=== PATIENT | male | born 1995 | race Caucasian/White ===

== ENCOUNTER 2019-06-10 08:20 | Emergency (ER) | payer SELFPAY ==
--- NOTE | 2019-06-10 08:54 | ED ---
Headache - HPI Summary HPI Summary: This patient is a 24 year old male presenting to [facility] with a chief complaint of potential carbon monoxide poisoning 8 hours ago. 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 His work had a meter that read 800 PPM of Carbon Monoxide. 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 He states he was in the area for several minutes trying to determine what was going on before clearing out of the area. He states his symptoms have improved since onset. Pt denies any fever, chills, erythema of eyes, sore throat, CP, SOB, cough, abdominal pain, N/V, dysuria, hematuria, myalgia, edema, rash, or dizziness. - History Of Current Complaint Chief Complaint: EDChemNuclearExpose Stated Complaint: POSS CARBON MONOXIDE POISONING PER PT Time Seen by Provider: 06/10/19 08:43 Hx Obtained From: Patient Onset/Duration: Started hours ago - Allergies/Home Medications Allergies/Adverse Reactions: Allergies Allergy/AdvReac Type Severity Reaction Status Date / Time No Known Allergies Allergy Verified 06/10/19 08:26 Home Medications: Home Medications NK [No Home Medications Reported] 06/10/19 [History Confirmed 06/10/19] PMH/Surg Hx/FS Hx/Imm Hx Endocrine/Hematology History: Denies: Hx Diabetes Cardiovascular History: Denies: Hx Coronary Artery Disease - Immunization History Immunizations Up to Date: Yes Infectious Disease History: No Infectious Disease History: Denies: Traveled Outside the [place] in Last 30 Days - Family History Known Family History: Negative: Respiratory Disease - Social History Alcohol Use: Daily Alcohol Amount: a couple beers a day Substance Use Type: Reports: None Smoking Status (MU): Never Smoked Tobacco Review of Systems Positive: Fatigue. Negative: Fever, Chills Negative: Erythema Negative: Sore Throat Negative: Chest Pain Negative: Shortness Of Breath, Cough Negative: Abdominal Pain, Vomiting, Nausea Negative: dysuria, hematuria Negative: Myalgia, Edema Negative: Rash Neurological: Other - Headache, Disoriented, Confusion. Neg: Dizziness All Other Systems Reviewed And Are Negative: No Physical Exam - Summary Physical Exam Summary: Constitutional: Well-developed, Well-nourished, Alert. (-) Distressed Skin: Warm, Dry HENT: Normocephalic; Atraumatic Eyes: Conjunctiva normal Neck: Musculoskeletal ROM normal neck. (-) JVD, (-) Stridor, (-) Tracheal deviation Cardio: Rhythm regular, rate normal, Heart sounds normal; Intact distal pulses; The pedal pulses are 2+ and symmetric. Radial pulses are 2+ and symmetric. (-) Murmur Pulmonary/Chest wall: Effort normal. (-) Respiratory distress, (-) Wheezes, (-) Rales Abd: Soft, (-) tenderness, (-) Distension, (-) Guarding, (-) Rebound Musculoskeletal: (-) Edema Lymph: (-) Cervical adenopathy Neuro: Alert, Oriented x3 Psych: Mood and affect Normal Triage Information Reviewed: Yes Vital Signs On Initial Exam: Initial Vitals Temp Pulse Resp BP Pulse Ox 98.1 F 76 16 151/102 98 06/10/19 08:21 06/10/19 08:21 06/10/19 08:21 06/10/19 08:21 06/10/19 08:21 Vital Signs Reviewed: Yes Procedures - Sedation Patient Received Moderate/Deep Sedation with Procedure: No Diagnostics - Vital Signs Vital Signs Temp Pulse Resp BP Pulse Ox 06/10/19 08:21 98.1 F 76 16 151/102 98 - Laboratory Result Diagrams: 06/10/19 08:57 06/10/19 09:02 Lab Statement: Any lab studies that have been ordered have been reviewed, and results considered in the medical decision making process. - EKG 0906 Cardiac Rate: NL - 72 BPM EKG Rhythm: Sinus Rhythm Summary of EKG Findings: NO STEMI. ED Physician has reviewed and interpreted this report. Headache Course/Dx - Course Course Of Treatment: This patient is a 24 year old male presenting to [facility] with a chief complaint of potential carbon monoxide poisoning 8 hours ago. The patient cleared the area immediately once aware of a possible exposure and is currently asymptomatic. Physical exam was unremarkable. Labs were unremarkable except Potassium 3.4 L and AST 12 L. There is no appreciable carbon monoxide level currrently, likely had a low level exposure. 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 A plan for discharge was discussed with the patient and he was agreeable with this plan. - Diagnoses Provider Diagnoses: Exposure to carbon monoxide Discharge ED - Sign-Out/Discharge Documenting (check all that apply): Patient Departure - Discharge - Discharge Plan Condition: Stable Disposition: HOME Patient Education Materials: Carbon Monoxide Poisoning (ED) Referrals: Nilesh Hernandez MD [Medical Doctor] - 2 Days Robert Tubbs MD [Medical Doctor] - 2 Days Additional Instructions: Return to ED with new or worsening symptoms. Follow up with Dr. Tubbs in 2-3 days. - Attestation Statements Document Initiated by Scribe: Yes Documenting Scribe: Woo Ziegler Provider For Whom Scribe is Documenting (Include Credential): Oscar Hanley MD Scribe Attestation: Woo Thao, scribed for Oscar Hanley MD on 06/10/19 at 1101.
[2019-06-10 09:26] LABS: Hematocrit 45 % (42-52); Hemoglobin 15.8 g/dL (14.0-18.0); Mean Corpuscular HGB Conc 35 g/dL (31-36); Mean Corpuscular Hemoglobin 31 pg (27-31); Mean Corpuscular Volume 88 fL (80-94); Mean Platelet Volume 8.7 fL (7.4-10.4); Platelet Count 184 10^3/uL (150-450); Red Blood Count 5.14 10^6 /uL (4.18-5.48); Red Cell Distribution Width 13 % (10-15)
[2019-06-10 09:47] LABS: Albumin 5.2 g/dL (3.2-5.2); Calcium 9.8 mg/dL (8.6-10.3); Potassium 3.4 mmol/L (3.5-5.0)
[2019-06-10 09:53] LABS: Albumin/Globulin Ratio 2.6 (1-3); BUN/Creatinine Ratio 13.7 (8-20); EGFR African American 117.9 (>60); EGFR Non-African American 97.4 (>60); Total Protein 7.2 g/dL (6.4-8.9)
[2019-06-10 11:06] VITALS: BP 128/69
== END 2019-06-10 11:06 | disposition home or self-care (01) ==
LOC: ED 08:20
DX: T58.11XA Toxic effect of carbon monoxide from utility gas, accidental (unintentional), initial encounter (principal); Y92.89 Other specified places as the place of occurrence of the external cause; Y99.0 Civilian activity done for income or pay
CPT/HCPCS: 36415; 80053; 82375; 82550; 84484; 85027; 93005; 99282